=== PATIENT | male | born 1950 | race Caucasian/White ===

== ENCOUNTER 2018-01-27 09:29 | Emergency (ER) | payer MEDICARE, MEDICAID ==
[2018-01-27] MEDS: HYDROCODONE/APAP (5/325) TAB PO (10:25)
[2018-01-27 10:47] LABS: ADD UMIC YES; UR ASCORBIC ACID 20 mg/dL (NEGATIVE); UR BACTERIA FEW /HPF (NONE SEEN); UR BILIRUBIN (Dip) NEGATIVE (NEGATIVE); UR BLOOD (Dip) NEGATIVE (NEGATIVE); UR CLARITY CLEAR (CLEAR); UR COLOR YELLOW (YELLOW); UR GLUCOSE (Dip) 2+ mg/dL (NEGATIVE); UR KETONES (Dip) TRACE mg/dL (NEGATIVE); UR LEUKOCYTE ESTERASE (Dip) NEGATIVE Leu/ul (NEGATIVE); UR MUCUS FEW /HPF (NONE SEEN); UR NITRITE (Dip) NEGATIVE (NEGATIVE); UR RBC 0 /HPF (0-5); UR SPECIFIC GRAVITY (Dip) 1.018 (1.003-1.030); UR TOTAL PROTEIN (Dip) 3+ mg/dl (NEGATIVE); UR UROBILINOGEN (Dip) NEGATIVE (NEGATIVE); UR WBC 1 /HPF (0-5)
== END 2018-01-27 12:42 | disposition home or self-care (01) ==
LOC: FTE 09:29
DX: M54.41 Lumbago with sciatica, right side (principal); I10 Essential (primary) hypertension; E11.9 Type 2 diabetes mellitus without complications; Z85.46 Personal history of malignant neoplasm of prostate
CPT/HCPCS: 72131; 81001; 99284-25

== ENCOUNTER 2018-02-02 06:48 | Emergency (ER) | payer MEDICARE, OTHER, MEDICAID ==
[2018-02-02] MEDS: GLYCERIN (ADULT) SUPP PR (07:31)
[2018-02-02] MEDS: KETOROLAC 60 MG INJ IM (08:27)
== END 2018-02-02 08:32 | disposition home or self-care (01) ==
LOC: FTE 06:48
DX: K59.00 Constipation, unspecified (principal); Z87.891 Personal history of nicotine dependence
CPT/HCPCS: 74176; 96372; 99285-25